=== PATIENT | male | born 1955 | race Caucasian/White ===

== ENCOUNTER 2017-06-16 14:11 | Outpatient (CLI) | payer MEDICAID ==
--- NOTE | 2017-06-16 18:28 | XRAY Report ---
SUPINE ABDOMEN: 06/16/2017 CLINICAL INDICATION: Pain. FINDINGS: Supine view of the abdomen demonstrates a normal bowel gas pattern. No small bowel dilatation is seen. No abnormal calcifications are appreciated overlying either renal shadow. IMPRESSION: NO EVIDENCE OF BOWEL OBSTRUCTION. TD: 06/16/2017 18:27
== END 2017-06-16 14:12 | disposition home or self-care (01) ==
LOC: DI.S 14:11
PROVIDERS: ATTEND Nurse Practitioner Family
DX: R10.9 Unspecified abdominal pain (principal)
CPT/HCPCS: 74018